=== PATIENT | female | born 1975 | race Caucasian/White ===

== ENCOUNTER → 2024-01-17 09:14 | Outpatient (REF) | payer BC, SELFPAY | LOC: HWWDC 09:14 | PROVIDERS: ATTENDING PHYSICIAN Obstetrics & Gynecology; FAMILY PHYSICIAN Internal Medicine | DX: Z12.31 Encounter for screening mammogram for malignant neoplasm of breast (principal) | CPT/HCPCS: 77063; 77067 ==

== ENCOUNTER → 2025-01-19 18:04 | Outpatient (REF) | payer BC, SELFPAY | LOC: WDC 18:04 | PROVIDERS: ATTENDING PHYSICIAN Obstetrics & Gynecology; FAMILY PHYSICIAN Physician Assistant Medical | DX: Z12.31 Encounter for screening mammogram for malignant neoplasm of breast (principal) | CPT/HCPCS: 77063; 77067 ==

== ENCOUNTER → 2025-08-10 08:06 | Outpatient (REF) | payer BC, SELFPAY | LOC: WDC 08:06 | PROVIDERS: ATTENDING PHYSICIAN Student in an Organized Health Care Education/Training Program | DX: Z13.820 Encounter for screening for osteoporosis (principal); Z82.62 Family history of osteoporosis; R92.333 Mammographic heterogeneous density, bilateral breasts | CPT/HCPCS: 76641; 77080 ==

== ENCOUNTER → 2025-11-02 14:44 | Outpatient (REF) | payer BC, SELFPAY | LOC: HWRAD 14:44 | PROVIDERS: ATTENDING PHYSICIAN Student in an Organized Health Care Education/Training Program | DX: S06.0X0D Concussion without loss of consciousness, subsequent encounter (principal) | CPT/HCPCS: 70450 ==

== ENCOUNTER → 2025-11-05 08:10 | Outpatient (REF) | payer BC, SELFPAY | LOC: HWRAD 08:10 | PROVIDERS: ATTENDING PHYSICIAN Nurse Practitioner Family; FAMILY PHYSICIAN Student in an Organized Health Care Education/Training Program | DX: E78.49 Other hyperlipidemia (principal); E78.00 Pure hypercholesterolemia, unspecified | CPT/HCPCS: 75571 ==

== ENCOUNTER → 2025-11-08 11:34 | Outpatient (REF) | payer BC, SELFPAY | LOC: HWRAD 11:34 | PROVIDERS: ATTENDING PHYSICIAN Student in an Organized Health Care Education/Training Program | DX: R22.42 Localized swelling, mass and lump, left lower limb (principal) | CPT/HCPCS: 76882 ==